=== PATIENT | female | born 1975 | race Caucasian/White ===

== ENCOUNTER 2017-07-20 09:36 | Day surgery (SDC) | payer OTHER, BC ==
[~2017-07-20 09:36] MED LIST: BUPIVACAINE 0.25%/EPI (MDV) 50 ML VIAL INJ; ROCURONIUM 50 MG INJ; SUGAMMADEX SODIUM 200 MG/2 ML VIAL IV
[2017-07-20] MEDS ORDERED: SOD CHLORIDE 0.9% 1,000 ML IV (12:00)
[2017-07-20] MEDS ORDERED: PROPOFOL 20 ML (14:12)
[2017-07-20] MEDS ORDERED: CEFAZOLIN 1 GM INJ (14:12)
[2017-07-20] MEDS ORDERED: MIDAZOLAM 1 MG/ML 2 ML INJ (14:13)
[2017-07-20] MEDS ORDERED: MEPERIDINE 25 MG INJ IV (14:30)
[2017-07-20] MEDS ORDERED: DIPHENHYDRAMINE 50 MG INJ IV (14:30)
[2017-07-20] MEDS ORDERED: LABETALOL HCL 20MG INJ IV (14:30)
[2017-07-20] MEDS ORDERED: ONDANSETRON 4 MG INJ IV ×2 (14:30→17:00)
[2017-07-20] MEDS ORDERED: EPHEDrine SULFATE 50 MG/5 ML SYG IV (14:30)
[2017-07-20] MEDS ORDERED: METOCLOPRAMIDE 10 MG INJ IV (14:30)
[2017-07-20] MEDS ORDERED: FENTAnyl 50 MCG/ML VIAL IV ×3 (14:30)
[2017-07-20] MEDS ORDERED: KETOROLAC 30 MG INJ (16:09)
[2017-07-20] MEDS ORDERED: ACETAMINOPHEN 1000MG/100ML IV 100 ML (16:09)
[2017-07-20] MEDS ORDERED: DEXAMETHASONE 4 MG/ML 1 ML INJ ×2 (16:09)
[2017-07-20] MEDS ORDERED: METOCLOPRAMIDE 10 MG INJ (16:09)
[2017-07-20] MEDS ORDERED: ONDANSETRON 4 MG INJ (16:09)
[2017-07-20] MEDS ORDERED: MEPERIDINE 100 MG INJ (16:53)
[2017-07-20] MEDS ORDERED: IBUPROFEN 600 MG TAB PO (17:00)
[2017-07-20] MEDS ORDERED: HYDROCODONE/APAP (5/325) TAB PO ×2 (17:00)
[2017-07-20] MEDS: KETOROLAC 30 MG INJ IV (18:02)
== END 2017-07-20 18:55 | disposition home or self-care (01) ==
LOC: SDS 09:36
DX: N60.12 Diffuse cystic mastopathy of left breast (principal)
CPT/HCPCS: 19301; 88307

== ENCOUNTER 2018-05-08 10:57 | Day surgery (SDC) | payer OTHER ==
[~2018-05-08 10:57] MED LIST changes: -BUPIVACAINE 0.25%/EPI (MDV) 50 ML VIAL INJ; -ROCURONIUM 50 MG INJ; +SOD CHLORIDE 0.9% 1,000 ML IV; -SUGAMMADEX SODIUM 200 MG/2 ML VIAL IV
[2018-05-08] MEDS ORDERED: FENTAnyl 50 MCG/ML VIAL (11:40)
[2018-05-08] MEDS ORDERED: MIDAZOLAM 1 MG/ML 2 ML INJ (11:51)
[2018-05-08] MEDS ORDERED: hydrALAzine 20 MG INJ IV (12:30)
[2018-05-08] MEDS ORDERED: MEPERIDINE 25 MG INJ IV (12:30)
[2018-05-08] MEDS ORDERED: FENTAnyl 50 MCG/ML VIAL IV ×2 (12:30)
[2018-05-08] MEDS ORDERED: MIDAZOLAM 1 MG/ML 2 ML INJ IV (12:30)
[2018-05-08] MEDS ORDERED: DIPHENHYDRAMINE 50 MG INJ IV (12:30)
[2018-05-08] MEDS ORDERED: ONDANSETRON 4 MG INJ IV ×2 (12:30→15:30)
[2018-05-08] MEDS ORDERED: KETOROLAC 30 MG INJ IV ×2 (12:30→15:30)
[2018-05-08] MEDS ORDERED: LEVALBUTEROL (NEB) 1.25 MG/0.5 ML AMP HHN (12:30)
[2018-05-08] MEDS ORDERED: LABETALOL HCL 20MG INJ IV (12:30)
[2018-05-08] MEDS ORDERED: LORAZEPAM 2 MG INJ IV (12:30)
[2018-05-08] MEDS: BUPIVACAINE 0.5%/EPI (SDV) 30 ML INJ (15:01)
[2018-05-08] MEDS ORDERED: PROPOFOL 20 ML (15:02)
[2018-05-08] MEDS ORDERED: LIDOCAINE 2% (SDV) 5 ML INJ (15:02)
[2018-05-08] MEDS ORDERED: SUCCINYLCHOLINE CHLORIDE 100 MG/5 ML SYG IV (15:02)
[2018-05-08] MEDS ORDERED: ROCURONIUM 50 MG INJ (15:02)
[2018-05-08] MEDS ORDERED: ONDANSETRON 4 MG INJ (15:02)
[2018-05-08] MEDS ORDERED: ROPIVACAINE 0.5 % 30 ML VIAL (15:05)
[2018-05-08] MEDS ORDERED: IBUPROFEN 600 MG TAB PO (15:30)
[2018-05-08] MEDS ORDERED: HYDROCODONE/APAP (5/325) TAB PO ×2 (15:30)
[2018-05-08] MEDS: HYDROmorphONE 1 MG/5 ML IV SYRINGE IV ×4 (15:56→16:29)
[2018-05-08] MEDS: HALOPERIDOL 5 MG INJ IV (16:08)
== END 2018-05-08 18:58 | disposition home or self-care (01) ==
LOC: SDS 10:57
DX: K82.8 Other specified diseases of gallbladder (principal); K66.0 Peritoneal adhesions (postprocedural) (postinfection)
CPT/HCPCS: 47562; 88304